=== PATIENT | female | born 1995 | race Caucasian/White ===

== ENCOUNTER → 2020-12-10 | Outpatient (CLI) | payer OTHER ==
[~2020-12-10] MED LIST: KEFLEX500 MG PO; PRENATAL TABLE1 EAC2 PO; PYRI100 PO; REGLAN PO; ZOFRAN4 MG PO
== END | disposition home or self-care (01) ==
LOC: LAB SHORT 15:53 → LAB 15:53
DX: O09.93 Supervision of high risk pregnancy, unspecified, third trimester (principal)
CPT/HCPCS: 87081; 87150

== ENCOUNTER 2021-01-11 17:39 | Inpatient (IN) | payer OTHER ==
[~2021-01-11] VITALS: Ht 160 cm; Wt 86.5 kg
[2021-01-11 19:06] LABS: BASOPHILS ABSOLUTE AUTO 0.03 K/mm3 (0.00-0.23); BASOPHILS PERCENT AUTO 0 % (0-2); EOSINOPHILS ABSOLUTE AUTO 0.07 K/mm3 (0.00-0.68); EOSINOPHILS PERCENT AUTO 1 % (0-6); Hematocrit 26.2 % (33.0-51.0); Hemoglobin 8.6 g/dL (11.5-16.0); IMMATURE GRAN ABSOLUTE AUTO 0.03 K/mm3 (0.00-0.10); IMMATURE GRAN PERCENT AUTO 0 % (0-1); LYMPHOCYTES ABSOLUTE AUTO 1.26 K/mm3 (0.84-5.20); LYMPHOCYTES PERCENT AUTO 15 % (21-46); MONOCYTES ABSOLUTE AUTO 0.75 K/mm3 (0.16-1.47); MONOCYTES PERCENT AUTO 9 % (4-13); Mean Corpuscular HGB Conc 32.8 g/dL (31.5-36.5); Mean Corpuscular Volume 82 fL (80-100); Mean Platelet Volume 11.9 fL (9.1-12.4); NEUTROPHILS ABSOLUTE AUTO 6.31 K/mm3 (1.96-9.15); NEUTROPHILS PERCENT AUTO 75 % (41-73); NRBC ABSOLUTE 0.02 K/mm3 (0.00-0.02); NRBC Auto 0.2 /100 WBC (0.0-0.2); Platelet Count 199 K/mm3 (150-400); RDW Coefficient Variation 14.2 % (11.7-14.2); RDW Standard Deviation 41.7 fL (35.1-46.3); Red Blood Cell Count 3.19 M/mm3 (3.80-5.20); White Blood Cell Count 8.45 K/mm3 (4.00-11.30)
[2021-01-11 20:26] LABS: SARS-Cov-2 (COVID-19) PCR, MMC NEGATIVE (NEGATIVE)
[2021-01-12 12:43] LABS: Hematocrit 27.6 % (33.0-51.0); Hemoglobin 8.7 g/dL (11.5-16.0); Mean Corpuscular HGB 26.4 pg (26.0-34.0); Mean Corpuscular HGB Conc 31.5 g/dL (31.5-36.5); Mean Corpuscular Volume 84 fL (80-100); Mean Platelet Volume 11.2 fL (9.1-12.4); NRBC ABSOLUTE 0.04 K/mm3 (0.00-0.02); NRBC Auto 0.4 /100 WBC (0.0-0.2); Platelet Count 215 K/mm3 (150-400); RDW Coefficient Variation 14.4 % (11.7-14.2); RDW Standard Deviation 43.8 fL (35.1-46.3); White Blood Cell Count 11.07 K/mm3 (4.00-11.30)
--- NOTE | 2021-01-12 12:58 | NUR ---
WASTE 150MCG FENTANYL, Lukasz COFFMAN RN WITNESS
--- NOTE | 2021-01-12 12:58 | NUR ---
I WITNESSED LONG MORTENSEN WASTE 150 MCG OF FENTANYL PER HOSPITAL POLICY
[2021-01-12 13:46] LABS: International Normalized Ratio 0.89; Prothrombin Time Results 9.7 Sec (9.7-11.5)
[2021-01-12 17:04] LABS: BASOPHILS ABSOLUTE AUTO 0.04 K/mm3 (0.00-0.23); BASOPHILS PERCENT AUTO 0 % (0-2); EOSINOPHILS ABSOLUTE AUTO 0.01 K/mm3 (0.00-0.68); EOSINOPHILS PERCENT AUTO 0 % (0-6); Hemoglobin 7.9 g/dL (11.5-16.0); IMMATURE GRAN ABSOLUTE AUTO 0.11 K/mm3 (0.00-0.10); IMMATURE GRAN PERCENT AUTO 1 % (0-1); LYMPHOCYTES PERCENT AUTO 13 % (21-46); MONOCYTES ABSOLUTE AUTO 0.78 K/mm3 (0.16-1.47); MONOCYTES PERCENT AUTO 7 % (4-13); Mean Corpuscular HGB 26.5 pg (26.0-34.0); Mean Corpuscular HGB Conc 31.6 g/dL (31.5-36.5); Mean Corpuscular Volume 84 fL (80-100); Mean Platelet Volume 11.9 fL (9.1-12.4); NEUTROPHILS ABSOLUTE AUTO 8.64 K/mm3 (1.96-9.15); NEUTROPHILS PERCENT AUTO 79 % (41-73); NRBC ABSOLUTE 0.02 K/mm3 (0.00-0.02); NRBC Auto 0.2 /100 WBC (0.0-0.2); Platelet Count 189 K/mm3 (150-400); RDW Coefficient Variation 14.6 % (11.7-14.2); Red Blood Cell Count 2.98 M/mm3 (3.80-5.20); White Blood Cell Count 10.98 K/mm3 (4.00-11.30)
[2021-01-12 17:16] LABS: International Normalized Ratio 0.87; Prothrombin Time Results 9.5 Sec (9.7-11.5)
[2021-01-12 18:05] LABS: PCO2 Cord - Arterial 43.3 mmHg (40-50); pH Cord - Arterial 7.24 (7.28-7.35)
[2021-01-12 18:06] LABS: PO2 Cord - Arterial < 13 mmHg (16-20)
[2021-01-12 18:07] LABS: PCO2 Cord - Venous 45.1 mmHg (40-50); PO2 Cord - Venous 19.6 mmHg (28-32)
--- NOTE | 2021-01-12 18:34 | NUR ---
NB BORN AT 1745 PPV X 4 MIN HR 40-60 INTINALLY AT 5 MIN OF AGE 82% BLOW BY GIVEN DELLED AT 5MIN THICK BLOODY MUCOUS PLUG NOTED AT 8 MIN OF AGE SA02 86% HR 170'S PERCUSSION DONE BILATERALLY BY RT AT 9 MIN OF LIFE, 1757 96% ON ROOM AIR HR 154 CBG 57, NB SWADDLED GIVEN TO DAD
[2021-01-12 22:25] LABS: Hematocrit 24.5 % (33.0-51.0); Hemoglobin 7.8 g/dL (11.5-16.0); Mean Corpuscular HGB 26.4 pg (26.0-34.0); Mean Corpuscular HGB Conc 31.8 g/dL (31.5-36.5); Mean Corpuscular Volume 83 fL (80-100); Mean Platelet Volume 11.2 fL (9.1-12.4); NRBC ABSOLUTE 0.02 K/mm3 (0.00-0.02); NRBC Auto 0.2 /100 WBC (0.0-0.2); Platelet Count 190 K/mm3 (150-400); RDW Coefficient Variation 14.6 % (11.7-14.2); RDW Standard Deviation 44.1 fL (35.1-46.3); Red Blood Cell Count 2.95 M/mm3 (3.80-5.20); White Blood Cell Count 13.02 K/mm3 (4.00-11.30)
--- NOTE | 2021-01-13 06:16 | NUR ---
PT DECLINED GETTING OUT OF BED AND GOING TO BATHROOM AT THIS TIME. PT DID SIT AT SIDE OF BED AND DANGLE LEGS. TOLLERATED MOVEMENT IN BED WELL.
[2021-01-13 06:18] LABS: BASOPHILS ABSOLUTE AUTO 0.04 K/mm3 (0.00-0.23); BASOPHILS PERCENT AUTO 0 % (0-2); EOSINOPHILS ABSOLUTE AUTO 0.02 K/mm3 (0.00-0.68); EOSINOPHILS PERCENT AUTO 0 % (0-6); Hematocrit 23.9 % (33.0-51.0); Hemoglobin 7.6 g/dL (11.5-16.0); IMMATURE GRAN ABSOLUTE AUTO 0.07 K/mm3 (0.00-0.10); IMMATURE GRAN PERCENT AUTO 1 % (0-1); LYMPHOCYTES ABSOLUTE AUTO 1.66 K/mm3 (0.84-5.20); LYMPHOCYTES PERCENT AUTO 14 % (21-46); MONOCYTES PERCENT AUTO 7 % (4-13); Mean Corpuscular HGB 26.7 pg (26.0-34.0); Mean Corpuscular HGB Conc 31.8 g/dL (31.5-36.5); Mean Corpuscular Volume 84 fL (80-100); Mean Platelet Volume 11.5 fL (9.1-12.4); NEUTROPHILS ABSOLUTE AUTO 9.37 K/mm3 (1.96-9.15); NEUTROPHILS PERCENT AUTO 78 % (41-73); NRBC ABSOLUTE 0.03 K/mm3 (0.00-0.02); NRBC Auto 0.3 /100 WBC (0.0-0.2); Platelet Count 187 K/mm3 (150-400); RDW Coefficient Variation 14.6 % (11.7-14.2); RDW Standard Deviation 44.6 fL (35.1-46.3); Red Blood Cell Count 2.85 M/mm3 (3.80-5.20); White Blood Cell Count 11.96 K/mm3 (4.00-11.30)
[2021-01-14] MEDS ORDERED: OXYC5 PO (09:43)
[2021-01-14] MEDS ORDERED: IBUP800 PO (09:43)
[2021-01-14] MEDS ORDERED: Colace100 MG PO (09:44)
--- NOTE | 2021-01-14 10:00 | NUR ---
PT D/C HOME, NB TRANSPORTED TO [facility]. D/C INSTRUCTIONS REVIEWED AND SIGNED, QUESTIONS ANSWERED.
--- NOTE | 2021-01-15 08:47 | NUR ---
01/15/21 0847 Teresa Martinez VERIFICATIONS: EDIT CHART.
--- NOTE | 2021-01-17 09:20 | NUR ---
PHONE MESSAGE LEFT PPFU CHECK 01/17/21 I CALLED AND LEFT A MESSAGE ON CHICHI'S PHONE ENCORAGING HER TO CALL WITH ANY QUESTIONS OR CONCERNS.
== END 2021-01-14 10:00 | disposition home or self-care (01) | DRG 788 ==
LOC: OBS 17:39 → BC 17:39 → OBS 21:06 → BC 21:07
PROVIDERS: Obstetrics & Gynecology; Student in an Organized Health Care Education/Training Program; ADMIT Obstetrics & Gynecology
PROC: 10D00Z1 Extraction of Products of Conception, Low, Open Approach (ICD-10-PCS; principal; 2021-01-12 16:30)
DX: O76 Abnormality in fetal heart rate and rhythm complicating labor and delivery (principal); Z3A.40 40 weeks gestation of pregnancy; Z37.0 Single live birth; O99.02 Anemia complicating childbirth; D64.9 Anemia, unspecified; O99.814 Abnormal glucose complicating childbirth; Z20.822 Contact with and (suspected) exposure to COVID-19; O43.893 Other placental disorders, third trimester; O99.52 Diseases of the respiratory system complicating childbirth; J45.909 Unspecified asthma, uncomplicated; Z79.899 Other long term (current) drug therapy; Z91.040 Latex allergy status; Z91.09 Other allergy status, other than to drugs and biological substances; Z87.891 Personal history of nicotine dependence; Z91.14 Patient's other noncompliance with medication regimen
CPT/HCPCS: 36415; 51702; 59025; 59200; 76819; 81003; 82803; 82947; 85025; 85027; 85384; 85610; 85730; 86850; 86900; 86901; 86923; 88307; 96361; 96365; A9270; G0378; J0456; J0690; J1885; J2001; J2370; J2590; J2765; J2916; J3010; J7030; J7050; J7120; U0004

== ENCOUNTER → 2024-09-22 | Outpatient (CLI) | payer OTHER ==
[~2024-09-22] MED LIST changes: +Colace100 MG PO; +IBUP800 PO; +OXYC5 PO
== END | disposition home or self-care (01) ==
LOC: LAB 10:41 → LAB SHORT 10:41
PROVIDERS: Family Medicine
DX: Z01.419 Encounter for gynecological examination (general) (routine) without abnormal findings (principal)
CPT/HCPCS: G0123